=== PATIENT | male | born 1955 | race Hispanic/Latino ===

== ENCOUNTER 2017-11-20 11:24 | Emergency (ER) | payer OTHER ==
[2017-11-20 11:24] VITALS: BMI 28.1
[2017-11-20 11:36] VITALS: TEMP 97.9
--- NOTE | 2017-11-20 11:49 | ED PDOC ---
Arrival/HPI - General Chief Complaint: Trauma Time Seen by Provider: 11/20/17 11:38 - History of Present Illness Narrative History of Present Illness (Text): 11/20/17 11:46 Patient is a 62 y/o M who was on his way to work today when he slipped while walking down stairs and fell backwards, hitting the R side of his back/rib on the steps. Denies head trauma or LOC. Denies headache. Reports taking tylenol prior to arrival. Reports the he has some R sided rib pain. Refusing additional pain medication. Denies shortness of breath. Past Medical History - Cardiac Hx Cardiac Disorders: Yes Hx Hypertension: Yes - Pulmonary Hx Respiratory Disorders: No - Neurological Hx Neurological Disorder: No - HEENT Hx HEENT Disorder: No - Renal Hx Renal Disorder: No - Endocrine/Metabolic Hx Endocrine Disorders: No - Hematological/Oncological Hx Blood Disorders: No - Integumentary Hx Dermatological Disorder: No - Musculoskeletal/Rheumatological Hx Musculoskeletal Disorders: Yes Hx Back Pain: Yes - Gastrointestinal Hx Gastrointestinal Disorders: No - Genitourinary/Gynecological Hx Genitourinary Disorders: No - Psychiatric Hx Psychophysiologic Disorder: No Hx Substance Use: No - Surgical History Other/Comment: NASAL - Anesthesia Hx Anesthesia Reactions: No Hx Malignant Hyperthermia: No - Suicidal Assessment Feels Threatened In Home Enviroment: No Family/Social History Family/Social History: No Known Family HX Smoking Status: Never Smoked Hx Alcohol Use: Yes (SOCIALLY) Hx Substance Use: No Allergies/Home Meds Allergies/Adverse Reactions: Allergies No Known Allergies Allergy (Verified 11/27/12 14:04) Home Medications: Home Meds Medication Instructions Recorded Confirmed Atorvastatin [Lipitor] 20 mg PO DAILY 06/19/16 11/20/17 amLODIPine [Norvasc] 5 mg PO DAILY 06/19/16 11/20/17 Aspirin [Ecotrin] 81 mg PO DAILY 08/13/16 11/20/17 Cholecalciferol (Vitamin D3) 1,000 unit PO DAILY 08/13/16 11/20/17 [Vitamin D3] Aliskiren [Tekturna] 300 mg PO DAILY 08/15/16 11/20/17 Review of Systems - Physician Review All systems were reviewed & negative as marked: Yes - Review of Systems Constitutional: absent: Fevers Respiratory: absent: SOB, Cough, Sputum, Wheezing Cardiovascular: Chest Pain (R posterior rib pain after fall). absent: Palpitations, Edema, Calf Pain, MERCHANT, Orthopnea, Syncope Gastrointestinal: absent: Abdominal Pain, Constipation, Diarrhea, Nausea, Vomiting Genitourinary Male: absent: Dysuria Musculoskeletal: Arthralgias Skin: absent: Rash, Pruritis, Laceration Neurological: absent: Headache, Dizziness Physical Exam Vital Signs Temp Pulse Resp BP Pulse Ox 11/20/17 11:29 97.9 F 71 16 164/82 H 99 Temperature: Afebrile Blood Pressure: Hypertensive Pulse: Regular Respiratory Rate: Normal Appearance: Positive for: Well-Appearing, Non-Toxic, Comfortable Pain Distress: None Mental Status: Positive for: Alert and Oriented X 3 - Systems Exam Head: Present: Atraumatic, Normocephalic Pupils: Present: PERRL Extroacular Muscles: Present: EOMI Conjunctiva: Present: Normal Mouth: Present: Moist Mucous Membranes Neck: No: MIDLINE TENDERNESS Respiratory/Chest: Present: Clear to Auscultation, Good Air Exchange, Tender to Palpation (R posterior rib tenderness). No: Respiratory Distress, Accessory Muscle Use Cardiovascular: Present: Regular Rate and Rhythm, Normal S1, S2. No: Murmurs Abdomen: No: Tenderness, Distention, Rebound Upper Extremity: Present: Normal Inspection Lower Extremity: Present: Normal Inspection Neurological: Present: GCS=15, CN II-XII Intact, Speech Normal Medical Decision Making ED Course and Treatment: 11/20/17 11:49 Will get xray to r/o rib fracture 11/20/17 13:08 Xray negative for fracture. Patient now requesting percocet for sleep at night in case he has pain as he is not able to take anti-inflammatories. 4 day course given. Alternatives to opiods discussed. - RAD Interpretation Radiology Orders: 11/20/17 11:39 RIBS RIGHT & PA CHEST [RAD] Stat Disposition/Present on Arrival - Present on Arrival Any Indicators Present on Arrival: No History of DVT/PE: No History of Uncontrolled Diabetes: No Urinary Catheter: No History of Decub. Ulcer: No History Surgical Site Infection Following: None - Disposition Have Diagnosis and Disposition been Completed?: Yes Diagnosis: Contusion of rib on right side Disposition: HOME/ ROUTINE Disposition Time: 12:58 Patient Plan: Discharge Patient Problems: Current Active Problems Problem Status Onset Contusion of rib on right side Acute Condition: GOOD Discharge Instructions (ExitCare): Contusion (DC), Bruised Rib (DC) Additional Instructions: Follow-up with PMD within 2 days. Motrin or tylenol for pain. Return to ED if condition worsens. Prescriptions: oxyCODONE/Acetaminophen [Percocet 5/325 mg Tab] 1 ea PO HS #4 tab Referrals: Chris Meza MD [Primary Care Provider] - Follow up with primary Forms: [employer] (Irish)
--- NOTE | 2017-11-20 13:00 | RAD ---
PROCEDURE: Radiographs of the Chest and Right Ribs. HISTORY: R sided rib pain after fall COMPARISON: None available. TECHNIQUE: Frontal radiograph of the chest and multiple oblique radiographs of the right ribs were obtained. FINDINGS: RIGHT RIBS: No fracture or focal lesion visualized. LUNGS: Clear. PLEURA: No pneumothorax or pleural fluid. CARDIOVASCULAR: Normal sized heart. No pulmonary vascular congestion. OTHER FINDINGS: None. IMPRESSION: Unremarkable radiographs of the chest and right ribs. No right rib fracture.
[2017-11-20 13:18] VITALS: BP 158/82; PULSE 64; RESP 18; O2SAT 98
== END 2017-11-20 13:18 | disposition home or self-care (01) ==
LOC: ED 11:24
DX: S20.211A Contusion of right front wall of thorax, initial encounter (principal); W10.9XXA Fall (on) (from) unspecified stairs and steps, initial encounter; Y92.89 Other specified places as the place of occurrence of the external cause